=== PATIENT | male | born 1970 | race Caucasian/White ===

== ENCOUNTER 2017-10-22 07:42 | Emergency (ER) | payer OTHER ==
[2017-10-22 08:00] VITALS: BP 146/71; PULSE 69; RESP 16; TEMP 97.9
[2017-10-22] MEDS ORDERED: HYDROcodone/APAP 7.5-325MG 1 EACH TAB PO ONE (08:15)
[2017-10-22] MEDS ORDERED: IBUPROFEN 800 MG TAB PO STA (08:15)
[2017-10-22] MEDS ORDERED: PENICILLIN V POTASSIUM 250 MG TAB PO STA (08:16)
--- NOTE | 2017-10-22 08:18 | ED ---
ENT HPI - General Chief complaint: Dental/Oral Stated complaint: Dental pain Time Seen by Provider: 10/22/17 08:03 Source: patient, RN notes reviewed Mode of arrival: ambulatory Limitations: no limitations - History of Present Illness Initial comments: This is a 46-year-old male presents emergency Department with chief complaint of dental pain. Patient states that she had some achiness yesterday but worsened overnight along with swelling. Patient states he has multiple bad teeth in the right side he is getting insurance or he can get dentures. Patient denies any fever or chills denies any neck pain or neck stiffness. States the pain radiates up into his face. Denies any swelling of his throat denies any difficulty swallowing. - Related Data Previous Rx's Medication Instructions Recorded Hydrocodone/Acetaminophen [[place] 1 tab PO Q6HR PRN #12 tab 10/22/17 5-325] Penicillin V Potassium [Pen Vee K] 500 mg PO QID #40 tablet 10/22/17 Allergies Allergy/AdvReac Type Severity Reaction Status Date / Time codeine Allergy Itching Verified 10/22/17 08:00 Review of Systems ROS Statement: Those systems with pertinent positive or pertinent negative responses have been documented in the HPI. ROS Other: All systems not noted in ROS Statement are negative. Past Medical History Past Medical History: No Reported History Additional Past Medical History / Comment(s): pancreatitis, hepatitis C History of Any Multi-Drug Resistant Organisms: None Reported Past Surgical History: Orthopedic Surgery Past Psychological History: No Psychological Hx Reported Smoking Status: Current every day smoker Past Alcohol Use History: Daily Past Drug Use History: Marijuana General Exam Limitations: no limitations General appearance: alert, in no apparent distress Head exam: Present: atraumatic, normocephalic, normal inspection Eye exam: Present: normal appearance, PERRL, EOMI (No signs of entrapment no periorbital swelling). Absent: scleral icterus, conjunctival injection, periorbital swelling ENT exam: Present: mucous membranes moist, TM's normal bilaterally, normal external ear exam, other (Mild right-sided facial swelling). Absent: normal oropharynx (Poor dentition, edentulous, multiple eroded teeth right upper no drainable abscess) Neck exam: Present: normal inspection. Absent: tenderness, meningismus, lymphadenopathy Respiratory exam: Present: normal lung sounds bilaterally. Absent: respiratory distress, wheezes, rales, rhonchi, stridor Cardiovascular Exam: Present: regular rate, normal rhythm, normal heart sounds. Absent: systolic murmur, diastolic murmur, rubs, gallop, clicks Course Vital Signs 10/22/17 07:59 Temperature 97.9 F Pulse Rate 69 Respiratory 16 Rate Blood Pressure 146/71 O2 Sat by Pulse 95 Oximetry Medical Decision Making - Medical Decision Making 46-year-old male present emergency department for dental pain. Patient does have dental infection on the right probable early abscess there is no drainable abscess noted in the oral region patient will be given Pen-Vee K, [place] and advised to take [id number] ibuprofen. Patient is advised to follow-up with the dental clinic as he does not have current insurance. Return parameters were discussed. Disposition Clinical Impression: Dental abscess, Dental caries Disposition: HOME SELF-CARE Condition: Stable Instructions: Dental Abscess (ED), Dental Caries (ED) Additional Instructions: Please return to the Emergency Department if symptoms worsen or any other concerns.Please follow up with the [facility] dental clinic. [facility] [place] [address]. Phone number for new patients or [phone] for existing patients. Prescriptions: Hydrocodone/Acetaminophen [[place] 5-325] 1 tab PO Q6HR PRN #12 tab PRN Reason: Pain Penicillin V Potassium [Pen Vee K] 500 mg PO QID #40 tablet Is patient prescribed a controlled substance at d/c from ED?: Yes If prescribed controlled substance>3 days was MAPS reviewed?: No When asked, does pt state using other controlled substances?: No Referrals: None,Stated [Primary Care Provider] - 1-2 days Time of Disposition: 08:18
== END 2017-10-22 08:52 | disposition home or self-care (01) ==
LOC: EC 07:42
DX: K04.7 Periapical abscess without sinus (principal); K02.9 Dental caries, unspecified; F17.200 Nicotine dependence, unspecified, uncomplicated; Z86.19 Personal history of other infectious and parasitic diseases; Z88.5 Allergy status to narcotic agent
CPT/HCPCS: 99283

== ENCOUNTER 2018-10-27 13:12 | Emergency (ER) | payer OTHER ==
[2018-10-27 13:17] VITALS: BP 147/77; PULSE 96; RESP 18; TEMP 97.8
--- NOTE | 2018-10-27 14:02 | ED ---
Extremity Problem HPI - General Chief complaint: Extremity Problem,Nontraumatic Stated complaint: lt foot pain Time Seen by Provider: 10/27/18 13:28 Source: patient, RN notes reviewed Mode of arrival: ambulatory Limitations: no limitations - History of Present Illness Initial comments: 47-year-old male presents emergency Department with chief complaint of left foot pain. Patient states has been present for 2 weeks. He states only thing he can remember that he jumped down on the ground states that he felt a slight twinge in his foot. He states that there is moderate amount of swelling denies any calf pain, knee pain. Patient states that she's had no x-rays for this but cannot tolerate the pain this time states pain, swelling is worsened. Denies any paresthesias at this time. - Related Data Home Medications Medication Instructions Recorded Confirmed Ibuprofen [Motrin Ib] 800 mg PO Q6H PRN 10/27/18 10/27/18 Previous Rx's Medication Instructions Recorded Hydrocodone/Acetaminophen [[place] 1 tab PO Q6HR PRN #12 tab 10/27/18 5-325] Allergies Allergy/AdvReac Type Severity Reaction Status Date / Time codeine Allergy Itching Verified 10/27/18 14:07 Review of Systems ROS Statement: Those systems with pertinent positive or pertinent negative responses have been documented in the HPI. ROS Other: All systems not noted in ROS Statement are negative. Past Medical History Past Medical History: No Reported History Additional Past Medical History / Comment(s): pancreatitis, hepatitis C History of Any Multi-Drug Resistant Organisms: None Reported Past Surgical History: Orthopedic Surgery Additional Past Surgical History / Comment(s): right elbow surgery Past Psychological History: No Psychological Hx Reported Smoking Status: Current every day smoker Past Alcohol Use History: Daily Past Drug Use History: Marijuana General Exam Limitations: no limitations General appearance: alert, in no apparent distress Head exam: Present: atraumatic, normocephalic, normal inspection Respiratory exam: Present: normal lung sounds bilaterally. Absent: respiratory distress, wheezes, rales, rhonchi, stridor Cardiovascular Exam: Present: regular rate, normal rhythm, normal heart sounds. Absent: systolic murmur, diastolic murmur, rubs, gallop, clicks Extremities exam: Present: other (Left foot there is moderate swelling, tenderness the mid foot, cap refill less than 2 seconds.) Course Vital Signs 10/27/18 13:14 Temperature 97.8 F Pulse Rate 96 Respiratory 18 Rate Blood Pressure 147/77 O2 Sat by Pulse 97 Oximetry Procedures - Orthopedic Splinting/Casting Injury #1 Side: left Lower Extremity Injury Location: short leg, foot Lower Extremity Immobilizer: posterior splint, synthetic pre-padded splint Other Orthopedic Equipment: crutches Medical Decision Making - Medical Decision Making 47-year-old male presented for left foot injury. Patient had x-rays which shows healing fracture. Patient will be splinted and follow up with orthopedics. Disposition Clinical Impression: Foot fracture, left Disposition: HOME SELF-CARE Condition: Stable Instructions (If sedation given, give patient instructions): Foot Fracture in Adults (ED) Additional Instructions: Please return to the Emergency Department if symptoms worsen or any other concerns. Prescriptions: Hydrocodone/Acetaminophen [[place] 5-325] 1 tab PO Q6HR PRN #12 tab PRN Reason: Pain Is patient prescribed a controlled substance at d/c from ED?: Yes Referrals: Jacob Machado MD [Primary Care Provider] - 1-2 days Gautam Elizabeth MD [Medical Doctor] - 1-2 days Time of Disposition: 14:16
--- NOTE | 2018-10-27 14:09 | XR ---
EXAMINATION TYPE: XR foot complete LT DATE OF EXAM: 10/27/2018 CLINICAL HISTORY: Left foot pain without injury. TECHNIQUE: Frontal, lateral, and oblique images of the left foot are obtained. COMPARISON: None FINDINGS: There is callus formation consistent with healing or subacute fracture proximal to mid sha ft second metatarsal. Consider stress fracture given patient's history of no known injury. Severe meri rowing first metatarsophalangeal joint is present. Flexion second through fifth toes is present. The overlying soft tissue is unremarkable. IMPRESSION: As above, healing nondisplaced subacute fracture proximal to mid diaphysis second metatar silas is present, possible stress fracture.
== END 2018-10-27 14:41 | disposition home or self-care (01) ==
LOC: EC 13:12
DX: S92.325D Nondisplaced fracture of second metatarsal bone, left foot, subsequent encounter for fracture with routine healing (principal); F17.200 Nicotine dependence, unspecified, uncomplicated; Z86.19 Personal history of other infectious and parasitic diseases; Z88.5 Allergy status to narcotic agent; X58.XXXD Exposure to other specified factors, subsequent encounter
CPT/HCPCS: 29515; 99283

== ENCOUNTER → 2018-11-04 | Outpatient (CLI) | payer OTHER ==
--- NOTE | 2018-11-04 15:54 | XR ---
Bilateral hips HISTORY: Bilateral hip pain 2 views of each hip submitted on a total of 4 images Marginal spurring, joint space loss present within the hips. Alignment, bone mineralization are maint ained. No fracture or dislocation. Calcifications present at the level of the greater trochanters ronnie aterally. IMPRESSION: Osteoarthritis. Consider calcific tendinitis, old avulsion injuries or partial tear of th e gluteus tendon insertions.
--- NOTE | 2018-11-04 15:55 | XR ---
Lumbar spine HISTORY: Low back pain Reviews of the lumbar spine Comparison to CT abdomen pelvis 07/18/2014 There is a spinal curvature. Multilevel spondylosis is present, loss of disc height is present at the intervertebral levels especially at L5-S1, L4-5, L3-4. Sclerosis present in the posterior elements o f the lower lumbar spine. Lumbar vertebral bodies show preserved height, alignment, and bone minerali zation. IMPRESSION: Degenerative disc disease and facet arthropathy. Spinal curvature.
== END ==
LOC: RADXRMAIN 14:05
PROVIDERS: ATTEND Family Medicine
DX: M51.16 Intervertebral disc disorders with radiculopathy, lumbar region (principal); M16.0 Bilateral primary osteoarthritis of hip; M25.551 Pain in right hip; M25.552 Pain in left hip; M54.5 Low back pain
CPT/HCPCS: 72100; 73521

== ENCOUNTER → 2018-11-20 | Outpatient (CLI) | payer OTHER ==
[2018-11-20 17:08] LABS: Hepatitis A Antibody IgM Non-Reactive (Non-Reactive); Hepatitis B Core IgM Non-Reactive (Non-Reactive)
== END | disposition home or self-care (01) ==
LOC: LABWHC1 09:47
PROVIDERS: ATTEND Family Medicine
DX: I10 Essential (primary) hypertension (principal); Z79.899 Other long term (current) drug therapy
CPT/HCPCS: 36415; 80074; 87522

== ENCOUNTER → 2018-12-03 | Outpatient (CLI) | payer OTHER ==
--- NOTE | 2018-12-03 11:44 | CT ---
EXAMINATION TYPE: CT lumbar spine w con DATE OF EXAM: 12/03/2018 COMPARISON: Plain film 11/04/2018 HISTORY: Lumbago CT DLP: 936 mGycm Automated exposure control for dose reduction was used. CONTRAST: CT scan of the lumbar is performed with IV Contrast, patient injected with 100 mL of Isovue [address] of the lumbar spine was performed. Bone and soft tissue window settings are submitted as well as coronal and sagittal reconstructions. FINDINGS: There is a spinal curvature as noted on plain film. Multilevel spondylosis is noted. Loss of disc hei ght is greatest at L3-4, L4-5 and L5-S1, vacuum phenomenon present at L5-S1. Some endplate sclerosis is also noted. Atheromatous changes present within the aortoiliac distribution. Liver shows low atten uation possibly due to hepatic steatosis. No abnormal enhancement. L1-L2: Normal disc space height. No disc herniation protrusion or central stenosis. No facet joint arthropathy. No evidence for foraminal encroachment. L2-L3: Normal disc space height. No disc herniation protrusion or central stenosis. No facet joint arthropathy. No evidence for foraminal encroachment. L3-L4: Small posterior broad-based disc bulge causes mild anterior mass effect on the thecal sac. The re is facet arthropathy, no significant central stenosis or foraminal encroachment. L4-L5: Facet arthropathy changes are present with hypertrophy ligamentum flavum, there may be encroac hment on the lateral recess, suspect there is a left lateral disc herniation, correlate for left L4 r adiculopathy, lateral extension endplate disc complex likely causes some foraminal encroachment. Ther e is a posterior broad-based disc bulge causing only mild anterior mass effect on the thecal sac. No significant central stenosis. L5-S1: Posterior broad-based disc bulge may contact the proximal S1 nerve roots. No significant centr al stenosis, lateral extension endplate disc complex encroaches somewhat on the right neural foramen. Some facet arthropathy changes present. IMPRESSION: No paraspinal masses are identified. Lumbar segments are intact. Multilevel degenerative disc diseas e, facet arthropathy
== END | disposition home or self-care (01) ==
LOC: RADCTMAIN 06:55
PROVIDERS: ATTEND Family Medicine
DX: M51.36 Other intervertebral disc degeneration, lumbar region (principal); M46.96 Unspecified inflammatory spondylopathy, lumbar region; M46.97 Unspecified inflammatory spondylopathy, lumbosacral region
CPT/HCPCS: 72132; Q9967

== ENCOUNTER → 2018-12-18 | Outpatient (CLI) | payer OTHER ==
[2018-12-18 08:51] VITALS: BP 138/88; PULSE 80; RESP 18
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
== END ==
LOC: PNWHC3 08:30
PROVIDERS: ATTEND Specialist
DX: M47.26 Other spondylosis with radiculopathy, lumbar region (principal); M46.96 Unspecified inflammatory spondylopathy, lumbar region; F17.200 Nicotine dependence, unspecified, uncomplicated; Z79.899 Other long term (current) drug therapy; Z88.5 Allergy status to narcotic agent
CPT/HCPCS: 99211

== ENCOUNTER → 2018-12-19 | Outpatient (CLI) | payer OTHER ==
[2018-12-19 08:51] LABS: INR 0.9 (<1.2); Prothrombin Time 10.2 sec (9.0-12.0)
== END ==
LOC: LABWHC1 08:26
PROVIDERS: ATTEND Specialist
DX: F10.21 Alcohol dependence, in remission (principal)
CPT/HCPCS: 36415; 85610

== ENCOUNTER 2018-12-31 08:27 | Day surgery (SDC) | payer OTHER ==
[2018-12-24 11:53] VITALS: BMI 27.1
[2018-12-31 10:11] VITALS: RESP 16; TEMP 98.1
[2018-12-31] MEDS ORDERED: LACTATED RINGERS 1,000 ML IV ONE (10:11)
[2018-12-31] MEDS ORDERED: LIDOCAINE 1% 20 ML VIAL (10MG/ML) FOR IV START INTRADERMA ONE (10:11)
[2018-12-31] MEDS ORDERED: LACTATED RINGERS 1,000 ML IV SCH (10:12)
[2018-12-31] MEDS ORDERED: IV FLUID CONTINUATION 900 ML IV ONE (11:30)
--- NOTE | 2018-12-31 11:33 | P.PCN ---
Date of Procedure: 12/31/18 Procedure(s) Performed: PREOPERATIVE DIAGNOSIS: Lumbar radicular pain, lumbar degenerative disc disease POSTOPERATIVE DIAGNOSIS: Same PROCEDURE Lumbar epidural steroid injection under fluoroscopic guidance at the L4-L5 level using left paramedian approach. Epidurogram ANESTHESIA: Local with 1% lidocaine 3 ml; Versed 2mg and fentanyl 100mcg EBL: Minimal PROCEDURE INDICATION: Low back pain with radiation to left lower extremity. PROCEDURE DESCRIPTION / TECHNIQUE: The patient was seen and identified in the preoperative area. Risks, benefits, complications including but not limited to infections ,bleeding ,allergic reaction to the medications ,nerve damage and not complete pain relief , and alternatives were discussed with the patient. The patient agreed to proceed with the procedure and signed the consent. IV was started, and vital signs were stable. Patient was taken to the OR and time out was completed. The patient was placed in the prone position on procedure table. The lumbosacral area was prepped and draped in the usual sterile fashion. The patient was closely monitored du ring the procedure. Conscious sedation was used during the procedure to decrease patients anxiety. Vital signs was monitored during the entire procedure. Using anterior-posterior fluoroscopy, the L4-L5 interlaminar space was identified and the skin over this site was marked and then infiltrated with 1% lidocaine subcutaneously. Subsequently, a 20-gauge Tuohy epidural needle was inserted and advanced toward the epidural space using the loss of resistance technique and guided by AP and lateral fluoroscopy. The correct needle position in the epidural space was verified. After negative aspiration, Isovue 200 2 mL was injected under live fluoroscopy confirming epidural spread. Then, a solution containing 80 mg of Depo-Medrol, 4 mL of preservative free normal saline, and 1 mL of 1% lidocaine was injected. The needle was withdrawn intact, skin was cleansed, and bandages were applied. COMPLICATIONS: None DISPOSITION / PLANS: The patient was returned to the supine position and transferred to the recovery area in a stable condition for observation. There was no evidence of lower extremity motor or sensory deficit after the procedure. Patient was discharged from the recovery room after meeting discharge criteria. Home discharge instructions were given to the patient by the staff. Follow up plan: For repeat procedure in 3-4 weeks
[2018-12-31 11:55] VITALS: BP 125/79; PULSE 75
--- NOTE | 2018-12-31 14:58 | FL ---
EXAMINATION TYPE: FL guided pain mgmt statistic DATE OF EXAM: 12/31/2018 CLINICAL HISTORY: Low back pain. TECHNIQUE: Fluoroscopy. COMPARISON: None. FINDINGS: Fluoroscopic guidance was provided during pain relief procedure performed by Dr. Basilio . A total of 11 seconds of fluoroscopic time was utilized during the procedure and 5 spot images are acqu ired. Images acquired shows needle localization with contrast injection at level of lower lumbar spi ne. IMPRESSION: As Above.
== END 2018-12-31 12:10 | disposition home or self-care (01) ==
LOC: ORPAIN 08:27
PROVIDERS: ATTEND Anesthesiology
DX: M47.26 Other spondylosis with radiculopathy, lumbar region (principal); M51.16 Intervertebral disc disorders with radiculopathy, lumbar region; B19.20 Unspecified viral hepatitis C without hepatic coma; F17.210 Nicotine dependence, cigarettes, uncomplicated; M19.90 Unspecified osteoarthritis, unspecified site; Z79.899 Other long term (current) drug therapy; Z88.5 Allergy status to narcotic agent
CPT/HCPCS: 62323; 99152

== ENCOUNTER 2019-01-22 10:05 | Emergency (ER) | payer OTHER ==
[2019-01-22 10:13] VITALS: TEMP 98.1
[2019-01-22] MEDS ORDERED: DIPH,PERTUS(ACELL)TETVAC-LF 0.5 ML VIAL IM ONE (10:52)
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
[2019-01-22] MEDS ORDERED: MORPHINE SULFATE 4 MG/ML SYRINGE IM STA (11:38)
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
[2019-01-22 12:38] VITALS: BP 146/89; PULSE 99; RESP 16
== END 2019-01-22 12:41 | disposition home or self-care (01) ==
LOC: EC 10:05
DX: M79.641 Pain in right hand (principal); S01.112A Laceration without foreign body of left eyelid and periocular area, initial encounter; S80.212A Abrasion, left knee, initial encounter; S80.211A Abrasion, right knee, initial encounter; Z23 Encounter for immunization; F17.200 Nicotine dependence, unspecified, uncomplicated; Z88.5 Allergy status to narcotic agent; V86.56XA Driver of dirt bike or motor/cross bike injured in nontraffic accident, initial encounter; Y92.410 Unspecified street and highway as the place of occurrence of the external cause
CPT/HCPCS: 99284; 29125; 90471; 96372; 73130; 72125; 70486; 70450; 90715; J2270

== ENCOUNTER 2019-01-28 08:56 | Day surgery (SDC) | payer OTHER ==
[2019-01-23 12:37] VITALS: BMI 27.1
[2019-01-28 09:13] VITALS: RESP 16; TEMP 97.3
[2019-01-28] MEDS ORDERED: LACTATED RINGERS 1,000 ML IV ONE (09:17)
--- NOTE | 2019-01-28 10:07 | P.PCN ---
Date of Procedure: 01/28/19 Procedure(s) Performed: PREOPERATIVE DIAGNOSIS: Lumbar radicular pain POSTOPERATIVE DIAGNOSIS: Same PROCEDURE Lumbar epidural steroid injection under fluoroscopic guidance at the L4-L5 left paramedian level. ANESTHESIA: Local with 1% lidocaine 3 ml; moderate sedation with Versed and fentanyl EBL: Minimal PROCEDURE INDICATION: Lumbar radicular pain and axial back pain. PROCEDURE DESCRIPTION / TECHNIQUE: The patient was seen and identified in the preoperative area. Risks, benefits, complications including but not limited to infections ,bleeding ,allergic reaction to the medications ,nerve damage and not complete pain relief , and alternatives were discussed with the patient. The patient agreed to proceed with the procedure and signed the consent. IV was started, and vital signs were stable. Patient was taken to the OR and time out was completed. The patient was placed in the prone position on procedure table and a pillow was placed under the abdomen to reduce lumbar lordosis. The lumbosacral area was prepped and draped in the usual sterile fashion. The patient was closely monitored during the procedure. Conscious sedation was used during the procedure to decrease patients anxiety. Vital signs was monitored during the entire procedure. Using anterior-posterior fluoroscopy, the L4-L5 interlaminar space was identified and the skin over this site was marked and then infiltrated with 1% lidocaine subcutaneously. Subsequently, a 20-gauge Tuohy epidural needle was inserted and advanced toward the epidural space using the loss of resistance technique and guided by AP and lateral fluoroscopy. The correct needle position in the epidural space was verified. After negative aspiration, a 5 ml solution containing 80 mg Depo-Medrol 2 mL of 1% lidocaine and 2 mL of preservative-free normal saline was injected. The needle was withdrawn intact, skin was cleansed, and bandages were applied. COMPLICATIONS: None DISPOSITION / PLANS: The patient was returned to the supine position and transferred to the recovery area in a stable condition for observation. There was no evidence of lower extremity motor or sensory deficit after the procedure. Patient was discharged from the recovery room after meeting discharge criteria. Home discharge instructions were given to the patient by the staff. Follow up plan: In clinic in a few weeks
[2019-01-28] MEDS ORDERED: IV FLUID CONTINUATION 1,000 ML IV ONE ×2 (10:11)
[2019-01-28 10:36] VITALS: BP 134/80; PULSE 70
--- NOTE | 2019-01-28 10:41 | FL ---
EXAMINATION TYPE: FL guided pain mgmt statistic DATE OF EXAM: 01/28/2019 CLINICAL HISTORY: Back pain. TECHNIQUE: Fluoroscopy. COMPARISON: None. FINDINGS: Fluoroscopic guidance was provided during pain relief procedure performed by Dr. Robles . A total of 5 seconds of fluoroscopic time was utilized during the procedure and two spot images are acquired. Images acquired shows needle localization of the lumbosacral junction. IMPRESSION: As Above.
== END 2019-01-28 10:41 | disposition home or self-care (01) ==
LOC: ORPAIN 08:56
PROVIDERS: ATTEND Student in an Organized Health Care Education/Training Program
DX: M54.16 Radiculopathy, lumbar region (principal); M54.5 Low back pain
CPT/HCPCS: 62323; J2250; J1030; J3010; Q9966

== ENCOUNTER → 2019-02-20 | Outpatient (CLI) | payer OTHER ==
[2019-02-20 13:07] LABS: Anisocytosis Slight; Basophils # (A) 0.1 k/uL (0-0.2); Basophils % (A) 1 %; Eosinophils # (A) 0.2 k/uL (0-0.7); Eosinophils % (A) 5 %; HCT 44.7 % (39.0-53.0); HGB 14.7 gm/dL (13.0-17.5); Lymphocytes # (A) 2.2 k/uL (1.0-4.8); Lymphocytes % (A) 46 %; MCH 28.1 pg (25.0-35.0); MCHC 32.9 g/dL (31.0-37.0); MCV 85.5 fL (80.0-100.0); Mean Platelet Volume 6.8; Monocytes # (A) 0.3 k/uL (0-1.0); Monocytes % (A) 5 %; Neutrophils # (A) 1.9 k/uL (1.3-7.7); Neutrophils % (A) 40 %; Platelet Count 171 k/uL (150-450); RBC 5.23 m/uL (4.30-5.90); RDW 16.2 % (11.5-15.5); WBC 4.7 k/uL (3.8-10.6)
[2019-02-20 13:13] LABS: INR 0.9 (<1.2); Prothrombin Time 9.9 sec (9.0-12.0)
[2019-02-20 18:38] LABS: ALT 33 U/L (10-49); AST 25 U/L (14-35); Alkaline Phosphatase 91 U/L (41-126); Bilirubin, Conjugated <0.20 mg/dL (0.20-0.40); Total Bilirubin 0.4 mg/dL (0.3-1.2); Total Protein 6.4 g/dL (6.2-8.2)
[2019-02-24 08:06] LABS: HCV Quant Log <1.08 (<1.08)
== END | disposition home or self-care (01) ==
LOC: LABWHC1 12:25
PROVIDERS: ATTEND Internal Medicine
DX: B18.2 Chronic viral hepatitis C (principal)
CPT/HCPCS: 36415; 80076; 82105; 85025; 85610; 87522

== ENCOUNTER → 2019-03-05 | Outpatient (CLI) | payer OTHER ==
[2019-03-05 14:38] VITALS: BP 141/91; PULSE 79; RESP 22
--- NOTE | 2019-03-05 15:12 | P.PN ---
Progress Note - Text Progress Note Date: 03/05/19 This is follow-up visit for this 48 years old male with history of low back pain patient diagnosed with lumbar radiculopathy and lumbar spondylosis with lumbar facet arthropathy, status post lumbar epidural steroid injection 2, she reported that his pain improved significantly and he has no low back pain anymore, he denies any motor or sensory deficit, he denies any fever or night sweats, patient had hepatitis C and is following up with the entry level paralegal, regarding his hepatitis patient will follow up with the pain clinic when necessary
== END | disposition home or self-care (01) ==
LOC: PNWHC3 13:53
PROVIDERS: ATTEND Specialist
DX: M47.26 Other spondylosis with radiculopathy, lumbar region (principal); M46.96 Unspecified inflammatory spondylopathy, lumbar region
CPT/HCPCS: 99211

== ENCOUNTER → 2019-03-06 | Outpatient (CLI) | payer OTHER ==
--- NOTE | 2019-03-06 12:16 | US ---
EXAMINATION TYPE: US liver DATE OF EXAM: 03/06/2019 COMPARISON: NONE CLINICAL HISTORY: B18.2 CHR VIRAL HEP C. Hepatitis C EXAM MEASUREMENTS: Liver Length: 18.3 cm Gallbladder Wall: 0.3 cm CBD: 0.3 cm Right Kidney: 10.2 x 4.6 x 4.8 cm Pancreas: Tail obscured by overlying bowel gas Liver: enlarged and slightly coarsened echotexture. Contour appears smooth. No focal masses seen. Gallbladder: possible polyp anterior wall = 0.3cm. This does not exhibit shadowing. Evidence for sonographic Duffy's sign: no CBD: appears wnl Right Kidney: no evidence of hydronephrosis IMPRESSION: 1. Slightly coarsened echotexture of the liver parenchyma is compatible with patient's known hepatoce llular disease. No focal hepatic masses seen on today's examination. 2. Gallbladder demonstrates a 3 mm nonshadowing probable polyp. Annual surveillance is recommended fo r polyps of ascites.
== END | disposition home or self-care (01) ==
LOC: RADUSWWP 11:05
PROVIDERS: ATTEND Internal Medicine
DX: B18.2 Chronic viral hepatitis C (principal)
CPT/HCPCS: 76705

== ENCOUNTER 2019-04-29 12:47 | Emergency (ER) | payer OTHER ==
[2019-04-29 13:06] VITALS: TEMP 98.2
[2019-04-29] MEDS ORDERED: predniSONE 50 MG TAB PO STA (13:59)
[2019-04-29] MEDS ORDERED: IPRATROPIUM-ALBUTEROL 3 ML NEB INHALATION STA ×2 (13:59→15:07)
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
--- NOTE | 2019-04-29 14:38 | XR ---
EXAMINATION TYPE: XR chest 2V DATE OF EXAM: 04/29/2019 COMPARISON: 10/17/2014 HISTORY: Chest pain TECHNIQUE: Frontal and lateral views of the chest are obtained. FINDINGS: There is no focal air space opacity. No evidence for pneumothorax. No pleural effusion. The cardiac silhouette size is within normal limits. The osseous structures are grossly intact. IMPRESSION: 1. No acute cardiopulmonary process.
[2019-04-29 15:30] VITALS: BP 141/98; PULSE 73; RESP 18
== END 2019-04-29 15:29 | disposition home or self-care (01) ==
LOC: EC 12:47
DX: J98.01 Acute bronchospasm (principal); M19.90 Unspecified osteoarthritis, unspecified site; B19.20 Unspecified viral hepatitis C without hepatic coma; F17.200 Nicotine dependence, unspecified, uncomplicated; Z79.899 Other long term (current) drug therapy; Z88.5 Allergy status to narcotic agent; Z88.8 Allergy status to other drugs, medicaments and biological substances
CPT/HCPCS: 94640 ×2; 71046; 99284; J7512

== ENCOUNTER 2019-11-18 06:31 | Emergency (ER) | payer OTHER ==
[2019-11-18 06:39] VITALS: RESP 18; TEMP 98.2
[2019-11-18] MEDS ORDERED: KETOROLAC 60 MG/2 ML VIAL IM STA (06:52)
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
--- NOTE | 2019-11-18 07:23 | XR ---
EXAMINATION TYPE: XR Hip Complete LT DATE OF EXAM: 11/18/2019 CLINICAL HISTORY: Pain. TECHNIQUE: AP and frogleg views of the left hip are obtained. COMPARISON: Bilateral hip x-ray November 04, 2018 FINDINGS: There is no acute fracture/dislocation evident in the left hip. Stable mild to moderate ax ial joint space loss. Persistent osteophyte or bony projection near the region of the greater trochan ter. Increased rectal fecal prominence noted. IMPRESSION: As above.
[2019-11-18 07:56] VITALS: BP 156/84; PULSE 80
== END 2019-11-18 07:55 | disposition home or self-care (01) ==
LOC: EC 06:31
DX: M25.552 Pain in left hip (principal); R20.0 Anesthesia of skin; M25.752 Osteophyte, left hip; F17.200 Nicotine dependence, unspecified, uncomplicated; Z88.5 Allergy status to narcotic agent; Z91.048 Other nonmedicinal substance allergy status
CPT/HCPCS: 73502; 99283; 96372; J1885

== ENCOUNTER → 2020-10-26 | Outpatient (CLI) | payer OTHER ==
--- NOTE | 2020-10-26 20:52 | CT ---
EXAMINATION TYPE: CT chest w con DATE OF EXAM: 10/26/2020 COMPARISON: Radiographs 04/29/2019. HISTORY: SOB. Pt states hx asthma as child. Current smoker. Weight loss CT DLP: 237.10 mGycm Automated exposure control for dose reduction was used. TECHNIQUE: CT scan of the chest is performed with IV Contrast, patient injected with 100 mL of Isovue 300. MIP Images are created on CT scanner and reviewed. 3D reconstructed images are created on an independent workstation and reviewed. FINDINGS: LUNGS: The lungs are grossly clear. There is mild centrilobular emphysema. There is no infiltrate or consolidation. There is a 2 mm subpleural nodule in the right lower lobe. There is no pleural effus ion or pneumothorax seen. The tracheobronchial tree is patent. MEDIASTINUM: There are no greater than 1 cm hilar or mediastinal lymph nodes. No pericardial effusi on is seen. OTHER: No additional significant abnormality is seen. IMPRESSION: No acute abnormality. Small right lower lobe pulmonary nodule. Per 2017 Fleischner Society guidelines, if the patient is lo w risk no follow up is needed unless suspicious morphology or upper lobe location, then consider 12 m onth follow-up. If patient is high risk (significant history of smoking or other known risk factors), follow up CT may be obtained in 12 months to ensure resolution or stability. Mild emphysema.
== END | disposition home or self-care (01) ==
LOC: RADCTMAIN 18:47
PROVIDERS: ATTEND Family Medicine
DX: J43.9 Emphysema, unspecified (principal); F17.200 Nicotine dependence, unspecified, uncomplicated
CPT/HCPCS: 71260; Q9967

== ENCOUNTER → 2020-11-04 | Outpatient (CLI) | payer OTHER ==
[2020-11-04 16:39] LABS: ALT 284 U/L (10-49); AST 147 U/L (14-35); Albumin/Globulin Ratio 1.86 (1.60-3.17); Alkaline Phosphatase 87 U/L (41-126); Bilirubin, Conjugated <0.20 mg/dL (0.20-0.40); Globulin 2.1 g/dL (1.6-3.3); Total Bilirubin 0.3 mg/dL (0.2-1.2)
== END | disposition home or self-care (01) ==
LOC: LABWHC1 10:20
PROVIDERS: ATTEND Family Medicine
DX: I10 Essential (primary) hypertension (principal); B18.2 Chronic viral hepatitis C
CPT/HCPCS: 36415; 80076; 87522

== ENCOUNTER 2020-12-06 15:48 | Emergency (ER) | payer OTHER ==
[2020-12-06] MEDS ORDERED: SODIUM CHLORIDE 0.9% 1,000 ML IV STA (15:55)
[2020-12-06] MEDS ORDERED: MORPHINE SULFATE 4 MG/ML SYRINGE IV STA (15:56)
[2020-12-06] MEDS ORDERED: DIPH,PERTUS(ACELL)TETVAC-LF 0.5 ML VIAL IM ONE (15:58)
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
[2020-12-06 16:05] LABS: Glucose,Whole Blood 84 mg/dL (75-99)
[2020-12-06 16:07] VITALS: BP 137/93; PULSE 100; RESP 16; TEMP 98
[2020-12-06 16:18] LABS: Basophils # (A) 0.2 k/uL (0-0.2); Basophils % (A) 2 %; Eosinophils # (A) 0.1 k/uL (0-0.7); Eosinophils % (A) 1 %; HCT 47.2 % (39.0-53.0); HGB 16.8 gm/dL (13.0-17.5); Lymphocytes # (A) 3.3 k/uL (1.0-4.8); Lymphocytes % (A) 34 %; MCH 31.1 pg (25.0-35.0); MCHC 35.5 g/dL (31.0-37.0); MCV 87.5 fL (80.0-100.0); Mean Platelet Volume 6.7; Monocytes # (A) 0.5 k/uL (0-1.0); Monocytes % (A) 5 %; Neutrophils # (A) 5.5 k/uL (1.3-7.7); Neutrophils % (A) 56 %; Platelet Count 266 k/uL (150-450); RDW 14.1 % (11.5-15.5); WBC 9.9 k/uL (3.8-10.6)
--- NOTE | 2020-12-06 16:18 | XR ---
EXAMINATION TYPE: XR chest 1V portable DATE OF EXAM: 12/06/2020 COMPARISON: Chest x-ray 04/29/2019 HISTORY: Trauma, pain TECHNIQUE: Single frontal view of the chest is obtained. FINDINGS: There is no focal air space opacity, pleural effusion, or pneumothorax seen. The cardiac silhouette size is within normal limits. The osseous structures are intact, there is a spinal curva ture, thoracic spondylosis is noted. IMPRESSION: No acute process.
--- NOTE | 2020-12-06 16:19 | XR ---
AP pelvis HISTORY: Trauma and pain Single frontal view the pelvis, correlation to left hip dated 11/18/2019 Bone mineralization, joint spaces and alignment are maintained. Patient is rotated. IMPRESSION: No fracture or dislocation.
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
[2020-12-06 16:27] LABS: Prothrombin Time 10.6 sec (9.0-12.0)
[2020-12-06 16:31] LABS: ALT 262 U/L (4-49); AST 245 U/L (17-59); African American GFR (CKD) >90 (>60 ml/min/1.73 sqM); Albumin 4.5 g/dL (3.5-5.0); Alkaline Phosphatase 126 U/L (38-126); Anion Gap 14 mmol/L; Blood Urea Nitrogen 21 mg/dL (9-20); Calcium 9.3 mg/dL (8.4-10.2); Carbon Dioxide 20 mmol/L (22-30); Chloride 104 mmol/L (98-107); Glucose 86 mg/dL (74-99); Non-African American GFR(CKD) >90 (>60 ml/min/1.73 sqM); Potassium 4.5 mmol/L (3.5-5.1); Sodium 138 mmol/L (137-145); Total Bilirubin 0.5 mg/dL (0.2-1.3); Total Protein 7.3 g/dL (6.3-8.2)
[2020-12-06 16:38] LABS: Alcohol 101 mg/dL
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
[2020-12-06] MEDS ORDERED: HYDROmorphone 0.5 MG/0.5 ML SYRINGE IVP STA (16:59)
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
[2020-12-06] MEDS: HYDROmorphone 1 MG/ML 1 ML SYRINGE IVP STA ×2 (17:26→17:49)
== END 2020-12-06 17:56 | disposition other institution (70) ==
LOC: EC 15:48
DX: S82.392B Other fracture of lower end of left tibia, initial encounter for open fracture type I or II (principal); S51.801A Unspecified open wound of right forearm, initial encounter; M54.2 Cervicalgia; E78.5 Hyperlipidemia, unspecified; K58.9 Irritable bowel syndrome, unspecified; F17.210 Nicotine dependence, cigarettes, uncomplicated; Z86.19 Personal history of other infectious and parasitic diseases; V86.55XA Driver of 3- or 4- wheeled all-terrain vehicle (ATV) injured in nontraffic accident, initial encounter; Y92.410 Unspecified street and highway as the place of occurrence of the external cause
CPT/HCPCS: 36415; 93005; 86900; 86901; 80053; 84484; 85025; 85610; 85730; 86850; 72170; 73090; 73590; 71045; 72125; 70450; 71260; 74177; 90715; 99291; 96365; 96375 ×2; 96376; 96361; 90471; G0480; J2270; J0690; J1170 ×2; Q9967; 80320

== ENCOUNTER → 2021-01-27 | Outpatient (CLI) | payer OTHER | END | disposition home or self-care (01) | LOC: LABWHC1 10:01 | PROVIDERS: ATTEND Family Medicine | DX: B19.20 Unspecified viral hepatitis C without hepatic coma (principal); Z79.899 Other long term (current) drug therapy | CPT/HCPCS: 36415; 87522 ==

== ENCOUNTER 2023-03-22 03:06 | Emergency (ER) | payer OTHER ==
[2023-03-22 03:20] VITALS: TEMP 98.2
[2023-03-22] MEDS ORDERED: MAG HYDROX/AL HYDROX/SIMETH 30 ML, HYOSCYAMINE ELIXIR 10 ML, LIDOCAINE 2% GLYDO JELLY 1... PO STA ×3 (03:37)
[2023-03-22 03:57] LABS: Basophils % (A) 1 %; Eosinophils # (A) 0.2 k/uL (0-0.7); Eosinophils % (A) 4 %; HCT 46.7 % (39.0-53.0); Lymphocytes % (A) 49 %; MCH 31.2 pg (25.0-35.0); MCHC 34.3 g/dL (31.0-37.0); MCV 90.9 fL (80.0-100.0); Mean Platelet Volume 7.8; Monocytes # (A) 0.2 k/uL (0-1.0); Monocytes % (A) 4 %; Neutrophils # (A) 1.6 k/uL (1.3-7.7); Neutrophils % (A) 40 %; Platelet Count 117 k/uL (150-450); RBC 5.14 m/uL (4.30-5.90); RDW 13.4 % (11.5-15.5)
[2023-03-22 04:11] LABS: ALT 107 U/L (4-49); AST 189 U/L (17-59); African American GFR (CKD) >90 (>60 ml/min/1.73 sqM); Alkaline Phosphatase 63 U/L (38-126); Amylase 30 U/L (30-110); Anion Gap 11 mmol/L; Blood Urea Nitrogen 5 mg/dL (9-20); Calcium 9.4 mg/dL (8.4-10.2); Carbon Dioxide 21 mmol/L (22-30); Chloride 106 mmol/L (98-107); Glucose 116 mg/dL (74-99); Lipase 100 U/L (23-300); Magnesium 1.7 mg/dL (1.6-2.3); Non-African American GFR(CKD) >90 (>60 ml/min/1.73 sqM); Potassium 3.8 mmol/L (3.5-5.1); Sodium 138 mmol/L (137-145); Total Bilirubin 0.8 mg/dL (0.2-1.3); Total Protein 7.1 g/dL (6.3-8.2)
[2023-03-22 04:27] LABS: Alcohol 194 mg/dL
--- NOTE | 2023-03-22 04:58 | ED ---
Chest Pain HPI - General Chief Complaint: Chest Pain Stated Complaint: Chest pain Time Seen by Provider: 03/22/23 03:26 Source: patient Mode of arrival: ambulatory Limitations: no limitations - History of Present Illness MD Complaint: chest pain Onset/Timin -: days(s) Onset: during rest Pain Location: substernal Pain Radiation: none Severity: moderate Quality: aching Consistency: constant Improves With: nothing Worsens With: nothing Treatments Prior to Arrival: none - Related Data Previous Rx's Medication Instructions Recorded LORazepam [Ativan] 1 mg PO TID 3 Days #9 tab 03/22/23 Allergies Allergy/AdvReac Type Severity Reaction Status Date / Time codeine Allergy Itching Verified 03/22/23 06:34 ferrous metals Allergy Itching Uncoded 03/22/23 06:34 Review of Systems ROS Statement: Those systems with pertinent positive or pertinent negative responses have been documented in the HPI. ROS Other: All systems not noted in ROS Statement are negative. Constitutional: Denies: fever, chills Respiratory: Denies: cough, dyspnea Cardiovascular: Reports: chest pain. Denies: palpitations, orthopnea, syncope Gastrointestinal: Denies: abdominal pain, nausea, vomiting, diarrhea Genitourinary: Denies: dysuria, hematuria Musculoskeletal: Denies: back pain Skin: Denies: rash Neurological: Denies: headache, weakness EKG Findings - EKG Results: EKG: interpreted by [facility], sinus rhythm, normal QRS, normal ST/T - Blocks, [place], Hypertrophy, ST Abn: QRS axis and voltage: left axis deviation (-30 to -90) (Borderline) Past Medical History Past Medical History: Hyperlipidemia, Liver Disease, Osteoarthritis (OA) Additional Past Medical History / Comment(s): pancreatitis, hepatitis C- currently,SOB with activity,severe pain to lower back and hips when standing, hx cervical,back and pelvis fx's, hx low blood sugar, IBS.migraines, History of Any Multi-Drug Resistant Organisms: None Reported Past Surgical History: Orthopedic Surgery Additional Past Surgical History / Comment(s): right elbow surgery, arthroscopic rt knee repair Past Anesthesia/Blood Transfusion Reactions: No Reported Reaction Past Psychological History: Anxiety Smoking Status: Current every day smoker Past Alcohol Use History: Occasional Past Drug Use History: Marijuana - Past Family History Mother Family Medical History: No Reported History Father Family Medical History: Coronary Artery Disease (CAD) General Exam Limitations: no limitations General appearance: alert, in no apparent distress Head exam: Present: atraumatic, normocephalic Eye exam: Present: normal appearance. Absent: scleral icterus, conjunctival injection Neck exam: Present: normal inspection Respiratory exam: Present: normal lung sounds bilaterally. Absent: respiratory distress, wheezes, rales, rhonchi, stridor, chest wall tenderness, accessory muscle use Cardiovascular Exam: Present: regular rate, normal rhythm, normal heart sounds. Absent: systolic murmur, diastolic murmur, rubs, gallop GI/Abdominal exam: Present: soft. Absent: distended, tenderness, guarding, rebound, rigid, mass Extremities exam: Present: normal inspection, normal capillary refill. Absent: pedal edema, calf tenderness Back exam: Present: normal inspection. Absent: CVA tenderness (R), CVA tenderness (L) Neurological exam: Present: alert Skin exam: Present: warm, dry, intact, normal color. Absent: rash Course Vital Signs 03/22/23 03/22/23 03/22/23 03:12 03:30 07:00 Temperature 98.2 F Pulse Rate 101 H 85 Respiratory 20 20 16 Rate Blood Pressure 129/86 142/98 O2 Sat by Pulse 95 96 Oximetry 03/22/23 08:10 Temperature Pulse Rate 80 Respiratory 18 Rate Blood Pressure 139/107 O2 Sat by Pulse 99 Oximetry Chest Pain MDM - MDM The patient had chest x-ray which I interpreted as being negative for acute infiltrate, pneumothorax, congestive heart failure Was pt. sent in by a medical professional or institution (, PA, FOOD AND BEVERAGE MANAGER, urgent care, hospital, or senior care...) When possible be specific @ -[No] Did you speak to anyone other than the patient for history (EMS, parent, family, police, friend...)? What history was obtained from this source @ -[No] Did you review nursing and triage notes (agree or disagree)? Why? @ -[I reviewed and agree with nursing and triage notes] Were old charts reviewed (outside hosp., previous admission, EMS record, old EKG, old radiological studies, urgent care reports/EKG's, senior care records)? Report findings @ -[Previous day chart reviewed Differential Diagnosis (chest pain, altered mental status, abdominal pain women, abdominal pain men, vaginal bleeding, weakness, fever, dyspnea, syncope, headache, dizziness, GI bleed, back pain, seizure, CVA, palpatations, mental health, musculoskeletal)? @ -Differential Chest Pain: Stable Angina, Unstable Angina, STEMI, NSTEMI Aortic Dissection, Pneumothorax, Musculoskeletal, Esophageal Spasm GERD, Cholecystitis, Pancreatitis, Zoster, this is not meant to be an all-inclusive list. EKG interpreted by me (3pts min.). @ -[I interpreted As above] X-rays interpreted by me (1pt min.). @ -I interpreted as above CT interpreted by me (1pt min.). @ -[None done] U/S interpreted by me (1pt. min.). @ -[None done] What testing was considered but not performed or refused? (CT, X-rays, U/S, labs)? Why? @ -[None] What meds were considered but not given or refused? Why? @ -[None] Did you discuss the management of the patient with other professionals (professionals i.e. , PA, FOOD AND BEVERAGE MANAGER, lab, RT, psych nurse, rn social work, oil well engineer, teacher, correction officer reformatory, case management rn)? Give summary @ -[No] Was smoking cessation discussed for >3mins.? @ -[No] Was critical care preformed (if so, how long)? @ -[No] Were there social determinants of health that impacted care today? How? (Homelessness, low income, unemployed, alcoholism, drug addiction, transportation, low edu. Level, literacy, decrease access to med. care, care home, rehab)? @ -[No] Was there de-escalation of care discussed even if they declined (Discuss DNR or withdrawal of care, Hospice)? DNR status @ -[No] What co-morbidities impacted this encounter? (DM, HTN, Smoking, COPD, CAD, Cancer, CVA, ARF, Chemo, Hep., AIDS, mental health diagnosis, sleep apnea, morbid obesity)? @ -[None] Was patient admitted / discharged? Hospital course, mention meds given and route, prescriptions, significant lab abnormalities, going to OR and other pertinent info. @ -[Patient's 52-year-old man with atypical chest pain. The workup here negative. Discussed appropriate further care and follow-up as well as seeing cardiology for possible stress test at this point symptoms are typical Undiagnosed new problem with uncertain prognosis? @ -[No] Drug Therapy requiring intensive monitoring for toxicity (Heparin, Nitro, Insulin, Cardizem)? @ -[No] Were any procedures done? @ -[No] Diagnosis/symptom? @ -[Acute chest pain Acute, or Chronic, or Acute on Chronic? @ -[default] Uncomplicated (without systemic symptoms) or Complicated (systemic symptoms)? @ -[Uncomplicated Side effects of treatment? @ -[No] Exacerbation, Progression, or Severe Exacerbation? @ -[No] Poses a threat to life or bodily function? How? (Chest pain, [place], [place], pneumonia, PE, COPD, DKA, ARF, appy, cholecystitis, CVA, Diverticulitis, Homicidal, S uicidal, threat to staff... and all critical care pts) @ -[No] Disposition Clinical Impression: Chest pain, Alcohol abuse Disposition: HOME SELF-CARE Condition: Good Instructions (If sedation given, give patient instructions): Chest Pain (ED) Prescriptions: LORazepam [Ativan] 1 mg PO TID 3 Days #9 tab Is patient prescribed a controlled substance at d/c from ED?: No Referrals: Jacob Machado MD [Primary Care Provider] - 1-2 days
[2023-03-22] MEDS ORDERED: LORazepam 1 MG TAB PO STA (07:52)
--- NOTE | 2023-03-22 07:59 | XR ---
EXAMINATION TYPE: XR chest 2V DATE OF EXAM: 03/22/2023 COMPARISON: 03/19/2023 HISTORY: 52-year-old male with chest pain TECHNIQUE: PA and lateral views FINDINGS: The cardiomediastinal silhouette, aorta, and pulmonary vasculature are within normal limits. Mild hyp erinflation. Lungs and pleural spaces are clear. IMPRESSION: Mild hyperinflation may relate to depth of inspiration or underlying emphysema. Otherwise, no acute p rocess seen.
[2023-03-22 08:14] VITALS: BP 139/107; PULSE 80; RESP 18
== END 2023-03-22 08:14 | disposition home or self-care (01) ==
LOC: EC 03:06
DX: R07.89 Other chest pain (principal); F10.10 Alcohol abuse, uncomplicated; F17.200 Nicotine dependence, unspecified, uncomplicated; F12.90 Cannabis use, unspecified, uncomplicated; Z88.5 Allergy status to narcotic agent; Z91.09 Other allergy status, other than to drugs and biological substances; Y90.6 Blood alcohol level of 120-199 mg/100 ml
CPT/HCPCS: 36415; 93005; 80053; 82150; 83690; 83735; 84484; 85025; 71046; 99285; G0480; 80320